=== PATIENT | female | born 1995 | race Caucasian/White ===

== ENCOUNTER 2021-06-16 19:41 | Outpatient (CLI) | payer MEDICAID ==
[~2021-06-16] VITALS: Ht 157.5 cm; Wt 70.5 kg
--- NOTE | 2021-06-16 19:50 | NUR ---
1950- PATIENT OF DR. KAHN WHO IS A AT 40.1. PRESENTS TO UNIT WITH BY HER SIDE WITH COMPLAINTS OF CONTRACTIONS THAT STARTED YESTERDAY AND TODAY HAVE BECOME CLOSER TOGETHER AND MORE INTENSE. PATIENT REPORTS, GFM, NO LOF OR BLEEDING AND CONTRACTIONS ABOUT 5 MINUTES APART. 1954- EFM AND TOCO ON AND TRACING. VITALS TAKEN, ASSESSMENT COMPLETE, PLAN OF CARE DISCUSSED AND QUESTIONS ANSWERED. 1999- SVE /2. PATIENT DENIES FURTHER NEEDS OR QUESTIONS. CALL LIGHT WITHIN REACH.
[2021-06-16 20:00] VITALS: BP 124/77; PULSE 107; TEMP 97.9
[2021-06-16] MEDS ORDERED: PRILOTC (20:26)
[2021-06-16] MEDS ORDERED: PRENATAL TABLET PO (20:26)
[2021-06-16 21:08] VITALS: BP 117/73; PULSE 107
== END 2021-06-16 21:15 | disposition home or self-care (01) ==
LOC: LDRO 19:41
DX: O62.9 Abnormality of forces of labor, unspecified (principal); Z3A.40 40 weeks gestation of pregnancy

== ENCOUNTER 2021-06-20 01:20 | Outpatient (CLI) | payer MEDICAID ==
[~2021-06-20] VITALS: Ht 157.5 cm; Wt 70.5 kg
[~2021-06-20 01:20] MED LIST: PRENATAL TABLET PO; PRILOTC
--- NOTE | 2021-06-20 01:20 | NUR ---
0120- PT PRESENTS TO LDR COMPLAINING OF CONTRACTIONS, AMBULATORY TO ROOM LR4, CHANGED INTO GOWN. 0127- EFM X2 APPLIED. PT DENIES LEAKING FLUID. STATES SHE IS HAVING SOME PINK DISCHARGE AND IS FEELING THE BABY MOVE. PLAN OF CARE FOR LABOR CHECK DISCUSSED AND QUESTIONS ANSWERED. 0140- SVE BY THIS NURSE . DISCUSS WAITING AN HOUR AND RECHECKING CERVIX AND PT IS AGREEABLE WITH THIS PLAN. 0145- NURSING ADMISSION HISTORY AND ASSESSMENT COMPLETE. ORAL HYDRATION PROVIDED. 0225- PT OFF MONITOR TO AMBULATE. 0250- PT BACK TO BED AND ON MONITORS. SVE BY THIS NURSE UNCHANGED. DISCUSSED WAITING ANOTHER HOUR AND RECHECKING OR CALLING DR FOR DISMISSAL ORDER AT THIS TIME. PT AND WISH TO DISMISS TO HOME AT THIS TIME AND RETURN WHEN IN ACTIVE LABOR. 0255- DR MILLER CALLED CHARTED, ORDERS FOR DISMISSAL RECEIVED. 0310- PT OFF MONITORS FOR DISMISSAL. 0330- DISMISSAL INSTRUCTIONS GIVEN. PT VERBALIZES UNDERSTANDING. PT DISMISSED TO HOME PER WHEELCHAIR ACCOMPANIED BY SPOUSE.
[2021-06-20 02:00] VITALS: BP 129/78; PULSE 66; TEMP 97.8
== END 2021-06-20 03:30 | disposition home or self-care (01) ==
LOC: LDRO 01:20 → LDR 01:43 → LDRO 03:30
DX: O62.9 Abnormality of forces of labor, unspecified (principal); Z3A.40 40 weeks gestation of pregnancy
CPT/HCPCS: OP

== ENCOUNTER 2021-06-20 06:36 | Inpatient (IN) | payer MEDICAID ==
[~2021-06-20] VITALS: Ht 157.5 cm; Wt 70.3 kg
[2021-06-20] VITALS (41 sets, daily range): BP systolic 111–144; BP diastolic 57–88; PULSE 16–141; TEMP 98–98.5
[2021-06-20 07:28] LABS: BASO % 0.1 % (0.0-2.0); GRAN # 11.5 K/mm3 (1.4-6.5); GRAN % 84.3 % (42.2-75.2); HEMATOCRIT 39.2 % (37.0-47.0); HEMOGLOBIN 14.1 g/dl (12.5-16.0); LYMPH # 1.5 K/mm3 (1.2-3.4); MEAN CELL VOLUME 98 fl (80.0-100.0); MEAN CORPUSCULAR HEMOGLOBIN 35 pg (27-31); MEAN CORPUSCULAR HGB CONC 36 g/dl (33.0-37.0); MEAN PLATELET VOLUME 10.4 fl (7.4-10.4); MONO # 0.6 K/mm3 (0.1-0.6); MONO % 4.2 % (1.7-9.3); PLATELET COUNT 134 K/mm3 (130-400); RED BLOOD COUNT 4.02 M/mm3 (4.10-5.30); REDCELL DISTRIBUTION WIDTH-CV 12.8 % (11.5-14.5)
--- NOTE | 2021-06-20 08:29 | NUR ---
0645 PATIENT HERE FOR COMPLAINTS OF CONTRACTIONS GETTING MORE INTENSE. SROM AT 0500 LARGE AMOUNT OF CLEAR. EFM ON FHT 125 GOOD ACCELERATIONS, BABY VERY ACTIVE. ASSESSMENT COMPLETED. AT BEDSIDE. SVE /-[address] BECKHAM CALLED AND UPDATED. ORDERS TO ADMIT FOR LABOR.
--- NOTE | 2021-06-20 09:04 | NUR ---
0700 IV STARTED IN LEFT WRIST. LR HUNG BOLUS STARTED. JHOAN GARCIA CALLED FOR EPIDURAL PLACEMENT. PATIENT BREATHS THROUGH EACH CONTRACTION
--- NOTE | 2021-06-20 09:31 | NUR ---
0820 PATIENT REPOSITIONED TO LEFT SIDE. TOLERATES WELL. STATES CONTRACTIONS GETTING BETTER.
--- NOTE | 2021-06-20 09:47 | NUR ---
0910 FOLWY PLACED, PATIENT TOLERATES WELL. NOT FEELING CONTRATIONS. SVE 4-5/-1.
--- NOTE | 2021-06-20 10:05 | NUR ---
0746 PATIENT SITS UP ON EDGE OF BED FOR EPIDURAL PLACEMENT. JHOAN GARCIA PLAY READER AT BEDSIDE. PATIENT TOLERATES WELL. 0749 TEST DOSE. SEE JHOAN GARCIA NOTES FOR QUESTIONS.
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
--- NOTE | 2021-06-20 15:50 | NUR ---
1451 DR BECKHAM AT BEDSIDE. PATIENT FEELING PRESSURE, READY TO PUSH. PATIENT WILL PUSH WITH EACH CONTRACTIONS [address] BECKHAM AT THIS TIME. STRONG CRY NOTED. BABY TO MOMS CHEST. SKIN TO SKIN. 1510 CORD CLAMPED AND CUT BY DR BECKHAM. BABY REMAINS SKIN TO SKIN. 1512 PLACENTA DELIVERED AND PITOCIN STARTED PER PROTOCOL AT 333/HR. SMALL REAPIR NOTED BY DR BECKHAM AT THIS TIME. PATIENT TOLERATES WELL
[2021-06-21 04:00] VITALS: BP 102/57; PULSE 70; TEMP 97.8
[2021-06-21 08:00] VITALS: BP 97/50; PULSE 68; TEMP 98.2
--- NOTE | 2021-06-21 09:22 | NUR ---
Initial visit; Parents thanked Environmental Field Technician for offering congratulations and God's blessings for the of their son. Environmental Field Technician thanked family for choosing [facility].
[2021-06-21 11:51] VITALS: BP 101/63; PULSE 76; TEMP 98.2
[2021-06-21 16:52] VITALS: BP 106/77; PULSE 75; TEMP 97.6
[2021-06-21 19:20] VITALS: BP 109/58; PULSE 81; TEMP 98
[2021-06-22] MEDS ORDERED: IBU600 MG PO (07:06)
[2021-06-22 08:26] VITALS: BP 92/51; PULSE 71; TEMP 98.1
== END 2021-06-22 16:01 | disposition home or self-care (01) | DRG 807 ==
LOC: LDRO 06:36 → LDR 07:00 → OB 07:00
PROVIDERS: Obstetrics & Gynecology; ADMIT Obstetrics & Gynecology
PROC: 10E0XZZ Delivery of Products of Conception, External Approach (ICD-10-PCS; principal; 2021-06-20)
PROC: 0KQM0ZZ Repair Perineum Muscle, Open Approach (ICD-10-PCS; 2021-06-20)
DX: O99.344 Other mental disorders complicating childbirth (principal); Z37.0 Single live birth; F32.A Depression, unspecified; F41.9 Anxiety disorder, unspecified; Z3A.40 40 weeks gestation of pregnancy; O70.1 Second degree perineal laceration during delivery
CPT/HCPCS: J2590; J7120

== ENCOUNTER 2023-11-10 17:53 | Outpatient (CLI) | payer MEDICAID ==
[~2023-11-10] VITALS: Ht 157.5 cm; Wt 71.4 kg
[~2023-11-10 17:53] MED LIST changes: +IBU600 MG PO
[2023-11-10 18:30] VITALS: BP 110/68; PULSE 104; TEMP 97.7
[2023-11-10] MEDS ORDERED: LR 1,000 ML IV PRN (19:00)
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
[2023-11-10] MEDS ORDERED: ZOFRAN8 MG PO (19:10)
[2023-11-10] MEDS ORDERED: PRILOSEC 20MG20 MG PO (19:11)
[2023-11-10] MEDS ORDERED: BENADRYL25 M2 PO ×2 (19:13→19:14)
== END 2023-11-10 19:50 | disposition home or self-care (01) ==
LOC: LDRO 17:53
DX: O47.1 False labor at or after 37 completed weeks of gestation (principal); Z3A.37 37 weeks gestation of pregnancy

== ENCOUNTER 2023-12-02 07:03 | Inpatient (IN) | payer MEDICAID ==
[~2023-12-02 07:03] MED LIST changes: +BENADRYL25 M2 PO; +PRILOSEC 20MG20 MG PO; +ZOFRAN8 MG PO
[2023-12-02] MEDS ORDERED: ROPivacaine PF 0.2% 200 ML IV ONE (09:13)
== END 2023-12-02 12:59 | disposition home or self-care (01) | DRG 807 ==
LOC: LDRO 07:03 → OB 07:15
PROVIDERS: ADMIT Obstetrics & Gynecology
PROC: 10E0XZZ Delivery of Products of Conception, External Approach (ICD-10-PCS; principal; 2023-12-02)
PROC: 0KQM0ZZ Repair Perineum Muscle, Open Approach (ICD-10-PCS; 2023-12-02)
PROC: 10907ZC Drainage of Amniotic Fluid, Therapeutic from Products of Conception, Via Natural or Artificial Opening (ICD-10-PCS; 2023-12-02)
PROC: 3E033VJ Introduction of Other Hormone into Peripheral Vein, Percutaneous Approach (ICD-10-PCS; 2023-12-02)
DX: O48.0 Post-term pregnancy (principal); Z37.0 Single live birth; Z3A.40 40 weeks gestation of pregnancy; O70.1 Second degree perineal laceration during delivery
CPT/HCPCS: J2795